=== PATIENT | female | born 1990 ===

== ENCOUNTER 2018-03-19 11:42 | Emergency (ER) | payer MEDICAID ==
[2018-03-19 11:46] VITALS: TEMP 98.4
--- NOTE | 2018-03-19 11:54 | ED PDOC ---
HPI: Chest Pain Time Seen by Provider: 03/19/18 11:52 Chief Complaint (Nursing): Chest Pain Chief Complaint (Provider): CP History Per: Patient (28 Y/O FEMALE NON SMOKER ON OCP HERE FOR CHEST PRESSURE LEFT SIDED SINCE YESTERDAY AROUND LUNCH AT WORK. NOTES ADDITIONAL SHARP INTERMITTENT PAIN WELL. DENIES ANY SOB. DENIES ANY PLEURITIC COMPONENT. NO FAMILY H/O SC/DVT/PE. SEEN IN CLINIC TODAY AND SENT TO ED FOR EVALUATION OF T WAVE INVERSIONS NOTED NOTED EKG.) Past Medical History Reviewed: Historical Data, Nursing Documentation, Vital Signs Vital Signs: Last Vital Signs Temp 98.4 F 03/19/18 11:43 Pulse 66 03/19/18 14:16 Resp 17 03/19/18 14:16 BP 122/68 03/19/18 14:16 Pulse Ox 98 03/19/18 14:16 - Family History Family History: States: No Known Family Hx - Allergies Allergies/Adverse Reactions: Allergies Allergy/AdvReac Type Severity Reaction Status Date / Time No Known Allergies Allergy Verified 03/19/18 11:43 Review of Systems ROS Statement: Except As Marked, All Systems Reviewed And Found Negative Cardiovascular: Positive for: Chest Pain Physical Exam - Reviewed Nursing Documentation Reviewed: Yes Vital Signs Reviewed: Yes - Physical Exam Appears: Positive for: Well, Non-toxic, No Acute Distress Head Exam: Positive for: ATRAUMATIC, NORMAL INSPECTION, NORMOCEPHALIC Skin: Positive for: Normal Color, Warm, DRY Eye Exam: Positive for: EOMI, Normal appearance, PERRL ENT: Positive for: Normal ENT Inspection Neck: Positive for: Normal, Painless ROM Cardiovascular/Chest: Positive for: Regular Rate, Rhythm Respiratory: Positive for: CNT, Normal Breath Sounds Gastrointestinal/Abdominal: Positive for: Normal Exam, Soft Back: Positive for: Normal Inspection Extremity: Positive for: Normal ROM Neurologic/Psych: Positive for: Alert, Oriented - Laboratory Results Result Diagrams: 03/19/18 13:05 03/19/18 13:05 - ECG ECG Rhythm: Positive for: Sinus Rhythm (NSR 68BPM; NO ECTOPY; T WAVE INVERSON V1 -V2) O2 Sat by Pulse Oximetry: 100 - Radiology X-Ray: Viewed By Me (NAD) Disposition - Clinical Impression Clinical Impression: Chest pain - Patient ED Disposition Is Patient to be Admitted: No - Disposition Referrals: [facility] [Outside] Disposition: Routine/Home Disposition Time: 14:25 Condition: FAIR Instructions: Chest Pain (DC) Forms: [facility] (Faroese), [employer] ED School/Work Excuse
[2018-03-19] MEDS ORDERED: Aspirin 325 mg EC Tablets PO ONE (13:09)
[2018-03-19 13:22] LABS: BASO % 0.5 % (0.0-2.0); EOS # 0.1 K/uL (0.0-0.7); EOS % 1.5 % (0.0-4.0); HEMOGLOBIN 13.7 g/dL (12.0-16.0); LYMPH # 1.9 K/uL (1.0-4.3); MEAN CELL VOLUME 92.8 fl (81.0-99.0); MEAN CORPUSCULAR HEMOGLOBIN 31.8 pg (27.0-31.0); MEAN CORPUSCULAR HGB CONC 34.3 g/dL (33.0-37.0); MEAN PLATELET VOLUME 8.6 fl (7.2-11.7); MONO # 0.4 K/uL (0.0-0.8); MONO % 5.3 % (0.0-10.0); NEUT # 5.1 K/uL (1.8-7.0); NEUT % 67.7 % (50.0-75.0); NRBC % 0.1 % (0.0-0.0); RBC 4.32 Mil/uL (3.80-5.20); RED CELL DISTRIBUTION WIDTH 13.4 % (11.5-14.5); WHITE BLOOD COUNT 7.6 K/uL (4.8-10.8)
[2018-03-19 13:34] LABS: ALB/GLOB RATIO 1.2 (1.0-2.1); ALBUMIN 4.1 g/dL (3.5-5.0); ALT/SGPT 35 U/L (9-52); AST/SGOT 34 U/L (14-36); BLOOD UREA NITROGEN 8 mg/dl (7-17); CALCIUM 9.6 mg/dL (8.4-10.2); GFR AFRICAN-AMERICAN > 60; GFR NON-AFRICAN AMERICAN > 60
--- NOTE | 2018-03-19 13:58 | RAD ---
PROCEDURE: CHEST RADIOGRAPH, 1 VIEW HISTORY: CP COMPARISON: No prior. FINDINGS: LUNGS: Clear. PLEURA: No pneumothorax or pleural fluid seen. CARDIOVASCULAR: Normal. OSSEOUS STRUCTURES: No significant abnormalities. VISUALIZED UPPER ABDOMEN: Normal. OTHER FINDINGS: None. IMPRESSION: No active disease.
[2018-03-19 14:18] VITALS: BP 122/68; PULSE 66; RESP 17
[2018-03-19 14:26] VITALS: O2SAT 100
--- NOTE | 2018-03-20 11:31 | CARD ---
APPROVED REPORT EKG Measurement Heart [id number] <Conclusion> Normal sinus rhythm Normal ECG
== END 2018-03-19 14:40 | disposition home or self-care (01) ==
LOC: H.ER 11:42
DX: R07.89 Other chest pain (principal)